=== PATIENT | female | born 1945 | race Caucasian/White ===

== ENCOUNTER 2020-03-20 14:43 | Emergency (ER) | payer OTHER, SELFPAY ==
[2020-03-20 15:13] VITALS: BP 163/73; PULSE 66; RESP 24; TEMP 37.3; O2SAT 96
--- NOTE | 2020-03-20 15:19 | ECG_ITS ---
Test Reason : SOB Blood Pressure : / mmHG Vent. Rate : 058 BPM Atrial Rate : 058 BPM P-R Int : 152 ms QRS Dur : 088 ms QT Int : 426 ms P-R-T Axes : 074 035 046 degrees QTc Int : 418 ms Sinus bradycardia Minimal voltage criteria for LVH, may be normal variant Abnormal ECG When compared with ECG of 28-NOV-2017 01:39, Vent. rate has decreased BY [address] no longer depressed in Anterolateral leads Referred By: Caridad Arias Electronically Signed By:JOSE STAPLETON MD
--- NOTE | 2020-03-20 15:37 | ED_ITS ---
HPI - URI/Sore Throat General Chief Complaint: Upper Respiratory Symptoms Stated Complaint: coughing,phlegm Time Seen by Provider: 03/20/20 14:58 Source: patient and family (Daughter) Mode of arrival: ambulatory Limitations: language barrier and other ( poor historian due to history of dementia and Trinidadian-speaking) History of Present Illness HPI Narrative: 74yoF c PMHx of asthma, diabetes, hypertension, hyperlipidemia and dementia presenting to the ED c c/o dry cough with shortness of breath /wheezing since yesterday. Denies any fevers, chills, nausea / vomiting, chest pain, abdominal pain, diarrhea or swelling of her legs. Reports she has been using her albuterol inhaler with no symptomatic relief. She reports she does not have nebulizer machine at home. Denies recent travel or sick contacts. Denies any additional complaints or concerns at this time. Related Data Previous Rx's Medication Instructions Recorded albuterol sulfate 1 inh INHALATION QID PRN #8.5 g 03/20/20 albuterol sulfate 2.5 mg INHALATION QID PRN #75 ml 03/20/20 azithromycin See Rx Instructions PO .COMPLEX #6 03/20/20 tab nebulizers [AeroEclipse II #1 ea 03/20/20 Nebulizer] prednisone 40 mg PO DAILY 5 Days #10 tab 03/20/20 Allergies Allergy/AdvReac Type Severity Reaction Status Date / Time No Known Allergies Allergy Unverified 01/17/20 17:55 Review of Systems Review of Systems: Constitutional : No Fever, No Chills, No fatigue, No Malaise ENT/Mouth : No sore throat, No runny nose Eyes: No Discharge Cardiovascular : No Chest Pain, + SOB Respiratory : + Cough, No Sputum, + Wheezing, No Smoke Exposure, No Dyspnea Gastrointestinal : No Nausea, No Vomiting, No Diarrhea Genitourinary : No irregular bleeding, No Dysuria, No Urinary Frequency, No Hematuria, No Urinary Incontinence, No Urgency, No Flank Pain, Musculoskeletal : No Myalgia Skin : No rash Neuro : No Headache Yes all other systems are reviewed and are negative [facility] Past Medical History Attestation statement: The following information was validated with the patient. Medical History (Updated 03/20/20 @ 17:40 by NORIS Flores) Asthma Asthma exacerbation Social History Social History Smoking Status: Never smoker Use of substances other than those prescribed or required for medical reasons: No Advance Directives: No Advance Directives Information Provided: Yes Physical Exam Vital Signs: Vital Signs: Last Vital Signs Temp 99.0 F 03/20/20 16:55 Pulse 62 03/20/20 16:55 Resp 20 03/20/20 16:55 BP 154/51 H 03/20/20 16:55 Pulse Ox 96 03/20/20 16:55 Body Mass Index 1.9 vital signs have been reviewed as normal and appeared to be correct. Blood pressure normal. Heart rate normal. Respiration rate normal. Temperature normal. Oxygen saturation normal. Appearance: Alert. Oriented. No mild respiratory distress. Head: Normal external exam. Normocephalic. Eyes: PERRLA. EOMI. Conjunctiva and sclera normal. Eyelids normal. ENT: Pharynx normal. Uvula midline. Moist mucous membranes. No trismus noted. No drooling noted. No muffled voice noted. Neck: Normal inspection. Neck supple. FROM. No adenopathy. No meningeal signs. CVS: Normal heart rate and rhythm. Heart sound normal. No murmurs noted. Pulses normal throughout. Respiratory: mild respiratory distress With accessory muscle usage, tracheal tugging and retractions noted. Decreased breath sounds with inspiratory and expiratory wheezing throughout. No rales/rhonchi noted. Chest nontender. Back: Full range of motion noted. Skin: Skin warm and dry. Normal skin color. Normal skin turgor. No rashes/lesions/lacerations noted. Extremities: No lower extremity edema. Extremities exhibit normal range of motion. Extremities nontender. Neuro: Oriented X 3. No motor deficit. No sensory deficit. Reflexes normal. Resp: Effort & Inspection: retractions Course Course Course Narrative: 15:20PM - 74yoF c PMHx of asthma, diabetes, hypertension, hyperlipidemia and dementia presenting to the ED c c/o dry cough with shortness of breath /wheezing since yesterday. - on exam patient is in mild respiratory distress speaking in short phrases with accessory muscle usage, tracheal tugging and retractions noted with extra [place] and inspiratory wheezing although oxygen saturation is 96% on room air I did a walking exercise test for a few steps and she also state consist at 96% on room air. patient has mild tachypnea otherwise all other vitals are WNL. - Plan: Labs, CXR, EKG. Provide a breathing tc, 125mg of solumederol, 2 g of magnesium then re-evaluate. Reevaluation(s) Reevaluation #1: - BUN mildly elevated at 26. Otherwise all other labs are within normal limits. EKG sinus bradycardia no acute ischemic changes noted. Chest x-ray revealed Subtle bronchial wall thickening may reflect small airways infection or inflammation. No focal consolidations. No pneumothorax or pleural effusion. - Patient reports moderate improvement after the 125 mg of Solu-Medrol, 2 g of magnesium and the 1 hour long breathing treatment. - Due to the patient's elevated BUN will give 1 L of IV fluids - Plan is to discharge with antibiotics and symptomatic treatment along with instructions return if any new or worsening symptoms to follow-up with primary care provider. COVID swab is pending at this time. Patient instructed to self isolate. Patient and daughter at bedside understands and agrees the plan. Time: 17:32 MDM - URI/Sore Throat Medical Records Attestation: I reviewed the patient's medical records. Lab Data Attestation: I reviewed the patient's lab results. Result diagrams: 03/20/20 16:04 03/20/20 16:04 Labs: Lab Results 03/20/20 03/20/20 03/20/20 Range/Units 05:44 16:04 16:04 WBC 8.3 (4.8-10.8) X10*3/uL RBC 4.17 L (4.20-5.50) X10*6/uL Hgb 11.8 L (12.0-16.0) g/dl Hct 36.6 L (37-47) % MCV 87.8 (80-98) fL MCH 28.3 (27.0-33.0) pg MCHC 32.2 (31.0-35.0) g/dl RDW 13.9 (11.0-16.0) % Plt Count 311 (160-400) X10*3/uL MPV 9.6 (9.4-12.3) fL Immature Gran % (Auto) 0.2 (0.0-0.4) % Neut % (Auto) 69.3 (45-73) % Lymph % (Auto) 19.4 L (20-40) % [place] % (Auto) 9.2 (2-11) % Eos % (Auto) 1.8 (0-4) % Baso % (Auto) 0.1 (0-2) % Lymph # (Auto) 1.6 (1.2-4.9) X10*3/uL [place] # (Auto) 0.8 (0.1-1.2) X10*3/uL Eos # (Auto) 0.2 (0.0-0.4) X10*3/uL Baso # (Auto) 0.0 (0.0-0.2) X10*3/uL Abs Immat Gran (auto) 0.02 (0.00-0.03) X10*3/uL Absolute Neuts (auto) 5.8 (2.0-8.3) X10*3/uL Absolute Nucleated RBC 0.000 (0.0-0.012) X10*3/uL Nucleated RBC % (auto) 0.0 (0.0-0.2) /100WBC Hold Purple Top SEE NOTE PT 11.5 (10.8-13.0) SEC INR 1.0 (0.9-1.1) Sodium (135-145) mmol/L Potassium (3.3-5.1) mmol/l Chloride (96-108) mmol/L Carbon Dioxide (22-29) mmol/L Anion Gap (12-20) BUN (9-16) mg/dL Creatinine (0.5-1.4) mg/dL Estim Creat Clear Calc Estimated GFR Random Glucose (60-115) mg/dL Calcium (8.4-10.2) mg/dL Magnesium (1.6-2.6) mg/dL Total Bilirubin (0.0-1.0) mg/dL Direct Bilirubin (0.0-0.5) mg/dL AST (5-31) U/L ALT (0-31) U/L Alkaline Phosphatase (39-117) U/L Total Protein (6.5-8.0) g/dL Albumin (3.5-5.0) g/dL 03/20/20 Range/Units 16:04 WBC (4.8-10.8) X10*3/uL RBC (4.20-5.50) X10*6/uL Hgb (12.0-16.0) g/dl Hct (37-47) % MCV (80-98) fL MCH (27.0-33.0) pg MCHC (31.0-35.0) g/dl RDW (11.0-16.0) % Plt Count (160-400) X10*3/uL MPV (9.4-12.3) fL Immature Gran % (Auto) (0.0-0.4) % Neut % (Auto) (45-73) % Lymph % (Auto) (20-40) % [place] % (Auto) (2-11) % Eos % (Auto) (0-4) % Baso % (Auto) (0-2) % Lymph # (Auto) (1.2-4.9) X10*3/uL [place] # (Auto) (0.1-1.2) X10*3/uL Eos # (Auto) (0.0-0.4) X10*3/uL Baso # (Auto) (0.0-0.2) X10*3/uL Abs Immat Gran (auto) (0.00-0.03) X10*3/uL Absolute Neuts (auto) (2.0-8.3) X10*3/uL Absolute Nucleated RBC (0.0-0.012) X10*3/uL Nucleated RBC % (auto) (0.0-0.2) /100WBC Hold Purple Top PT (10.8-13.0) SEC INR (0.9-1.1) Sodium 144 (135-145) mmol/L Potassium 4.7 (3.3-5.1) mmol/l Chloride 108 (96-108) mmol/L Carbon Dioxide 26 (22-29) mmol/L Anion Gap 15 (12-20) BUN 26 H (9-16) mg/dL Creatinine 1.38 (0.5-1.4) mg/dL Estim Creat Clear Calc 2.5 Estimated GFR 37 Random Glucose 94 (60-115) mg/dL Calcium 8.5 (8.4-10.2) mg/dL Magnesium 1.9 (1.6-2.6) mg/dL Total Bilirubin 0.4 (0.0-1.0) mg/dL Direct Bilirubin < 0.2 (0.0-0.5) mg/dL AST 17 (5-31) U/L ALT 10 (0-31) U/L Alkaline Phosphatase 127 H (39-117) U/L Total Protein 6.9 (6.5-8.0) g/dL Albumin 4.1 (3.5-5.0) g/dL Imaging Data Chest x-ray: Attestation: I personally reviewed and interpreted this imaging study as follows: Radiologist's impression: Subtle bronchial wall thickening may reflect s mall airways infection or inflammation. No focal consolidations. No pneumothorax or pleural effusion. ECG Data Attestation: I personally reviewed and interpreted this ECG as follows: ECG interpretation date: 03/20/20 ECG interpretation time: 15:49 Interpretation: Sinus bradycardia with a ventricular rate of 58 with LVH with a normal QRS duration normal QT /QTC interval. No acute ischemic changes noted. Similar compared to prior on 11/28/2017. Critical Care Time Critical Care Time Critical Care Time: Yes Total Critical Care Time: 60 Attestation: I personally attest to this time spent taking care of the patient Discharge Plan Discharge Clinical Impression: Acute viral syndrome Asthma exacerbation Qualifiers: Asthma severity: severe Asthma persistence: unspecified Qualified Code(s): J45.901 - Unspecified asthma with (acute) exacerbation Patient Disposition: Home, Self-Care Instructions: Asthma (ED), Bronchospasm (ED), COVID-19 (Coronavirus Disease 2019) (ED) Additional Instructions: Seguimiento con longoria proveedor de atenci?n primaria. Si usted no tiene 1 le di alan lista de diferentes lugares o puede llamar y encontrar un nuevo proveedor de atenci?n primaria para alan evaluaci?n y tratamiento adicional. Regrese si hay s?ntomas nuevos o que empeoran. Follow-up with her primary care provider. If you do not have 1 I gave you a list of different locations or you can call and find a new primary care provider for further evaluation and treatment. Return if any new or worsening symptoms. Seguimiento con longoria proveedor de atenci?n primaria. Si usted no tiene 1 le di alan lista de diferentes lugares o puede llamar y encontrar un nuevo proveedor de atenci?n primaria para alan evaluaci?n y tratamiento adicional. Regrese si hay s?ntomas nuevos o que empeoran. Bas?ndonos en dayday s?ntomas e historia, hemos enviado un COVID-19. Aunque longoria resultado es PENDIENTE en latisha momento. LOS RESULTADOS deben regresar en un plazo de 72 horas. En latisha momento se le contactar? con resultados NEGATIVOS O POSITIVOS. -Por favor, espere hasta que nos pongamos en contacto con usted para dayday resultados. En latisha momento usted estar? zack para el derek. Por favor, planifique la cuare ntena autom?carol por un m?ximo de 14 d?as. No te expongas a los dem?s. No puedes ir a trabajar. Si las pruebas vuelven negativas, puede volver a las actividades siempre y cuando ya no tenga s?ntomas rolando al menos 3 d?as. Por favor, siga las instrucciones en fr?o y l?vese las peterson con frecuencia. Puede sarwat Tylenol seg?n las instrucciones del biber?n para el dolor o la fiebre. Paciente atendido en el servicio de urgencias el 03/20/2020 y debe ser eximido del trabajo hasta los resultados negativos de la prueba Y hasta que hayan pasado 72 horas sin s?ntomas Y hayan pasado al menos 10 d?as desde que aparecieron los s?ntomas por primera vez o desde la ?ltima exposici?n al paciente positivo COVID-19 Directrices de los CDC para el aislamiento en el hogar: - Mant?ngase alejado de los dem?s - USAR ALAN MASCARA si usted est? enfermo Y ESTANCIA HOGAR - C?brase la boca y la nariz con un pa?uelo de papel al toser o estornudar. Deseche los pa?uelos en alan papelera forrada y l?vese las peterson inmediatamente con agua y jab?n rolando al menos 20 segundos. Si no hay agua y jab?n disponibles, limpie las peterson con desinfectante de peterson a base de alcohol que contenga al menos 60% de alcohol. - L?mpiarse las peterson a menudo con agua y jab?n rolando al menos 20 segundos - Evite tocarse los ojos, la nariz y la boca con las peterson sin britt - No comparta platos, vasos, tazas, utensilios para comer, toallas o ropa de cama con otras personas en longoria hogar. Despu?s de usar estos art?culos, l?velos zack con agua y jab?n o p?ngalos en el [place]. - Limpie las superficies de alto contacto en longoria ?lanny de aislamiento ( habitaci?n de enfermos y ba?o) todos los d?as; permitir que el cuidador limpie y desinfecte las superficies de alto contacto en otras ?reas del hogar. Limpie el ?lanny o el art?culo con agua y jab?n u otro detergente si est? sucio. Luego, usa un desinfectante dom?stico. - Limitar el contacto con mascotas y animales: Si debe cuidar de alan mascota, l?vese las peterson antes y despu?s de interactuar con ellos). Based on your symptoms and history we have sent a COVID-19. Although your RESULT IS PENDING at this time. RESULTS should return within 72 hours. At this time you will be contacted with either NEGATIVE OR POSITIVE results. -Please wait until we contact you for your results. At this time you will be okay for discharge. Please plan for self quarantine for up to 14 days. Do not expose yourself to others. You may not go to work. If testing does come back negative you may return to activities as long as you are no longer having any symptoms for at least 3 days. Please continue to follow cold instructions and wash your hands frequently. You may take Tylenol as directed on the bottle for pain or fever. Patient seen in the emergency department on 03/20/2020 and should be excused from work until negative test results AND until 72 hours without any symptoms AND at least 10 days have passed since symptoms first appeared or since last exposure to COVID-19 positive patient CDC Guidelines for home isolation: - Stay away from others - WEAR A MASK if you are sick AND STAY HOME - Cover your mouth and nose with a tissue when you cough or sneeze. Dispose of tissues in a lined trash can and wash your hands immediately with soap and water for at least 20 seconds. If soap and water are not available, clean hands with alcohol-based hand manager games that contains at least 60% alcohol. - Clean your hands often with soap and water for at least 20 seconds - Avoid touching your eyes, nose and mouth with unwashed hands - Do not share dishes, drinking glasses, cups, eating utensils, towels, or bedding with other people in your home. After using these items, wash them thoroughly with soap and water or put in the pecan sheller. - Clean high-touch surfaces in your isolation area ( sick room and bathroom) every day; let a caregiver clean and disinfect high-touch surfaces in other areas of the home. Clean the area or item with soap and water or another detergent if it is dirty. Then, use a household disinfectant. - Limit contact with pets and animals: If you must care for a pet, wash your hands before and after interacting with them). Prescriptions: New azithromycin 250 mg tablet See Rx Instructions PO .COMPLEX Qty: 6 RF: 0 albuterol sulfate 90 mcg/actuation HFA aerosol inhaler 1 inh inhalation QID PRN (Reason: shortness of breath or wheezing) Qty: 8.5 RF: 0 (DME) AeroEclipse II Nebulizer Misc See Rx Instructions .ROUTE .MEDSUPPLY Qty: 1 RF: 0 prednisone 20 mg tablet 40 mg PO DAILY 5 Days Qty: 10 RF: 0 albuterol sulfate 2.5 mg /3 mL (0.083 %) solution for nebulization 2.5 mg inhalation QID PRN (Reason: shortness of breath or wheezing) Qty: 75 RF: 0 Referrals: [facility] [Provider Group] - 2 days [facility] [Provider Group] - [address] [facility] [place] [Provider Group] - [address] [facility] [address] [facility] [Provider Group] - 2 days Print Language: Trinidadian
[2020-03-20] MEDS: Albuterol Sulfate (0.083%) 2.5 MG/3 ML VIAL.NEB 10 MG INHALE (16:05)
[2020-03-20] MEDS: Magnesium Sulfate/H2O 2 GM/50 ML PIGGYBACK IV (16:08)
[2020-03-20] MEDS: methylPREDNISolone Sod Succ/PF 125 MG/2 ML VIAL IVPUSH (16:24)
[2020-03-20 16:26] LABS: Basophils Percent Auto 0.1 % (0-2); Eosinophils Absolute Auto 0.2 X10*3/uL (0.0-0.4); Eosinophils Percent Auto 1.8 % (0-4); Hematocrit 36.6 % (37-47); Hemoglobin 11.8 g/dl (12.0-16.0); Imm Gran Abs Auto 0.02 X10*3/uL (0.00-0.03); Imm Gran Pct Auto 0.2 % (0.0-0.4); Lymphocytes Absolute Auto 1.6 X10*3/uL (1.2-4.9); Lymphocytes Percent Auto 19.4 % (20-40); MANUAL DIFF FLAG NO; Mean Corpuscular HGB Conc 32.2 g/dl (31.0-35.0); Mean Corpuscular Hemoglobin 28.3 pg (27.0-33.0); Mean Corpuscular Volume 87.8 fL (80-98); Mean Platelet Volume 9.6 fL (9.4-12.3); Monocytes Absolute Auto 0.8 X10*3/uL (0.1-1.2); Monocytes Percent Auto 9.2 % (2-11); Neutrophils Absolute Auto 5.8 X10*3/uL (2.0-8.3); Neutrophils Percent Auto 69.3 % (45-73); Platelet Count 311 X10*3/uL (160-400); Red Blood Count 4.17 X10*6/uL (4.20-5.50); Red Cell Distribution Width 13.9 % (11.0-16.0); White Blood Count 8.3 X10*3/uL (4.8-10.8)
[2020-03-20 16:32] LABS: Prothrombin Time 11.5 SEC (10.8-13.0)
--- NOTE | 2020-03-20 16:39 | XR_ITS ---
EXAMINATION: XR CHEST CLINICAL INFORMATION: Shortness of breath COMPARISON: Chest radiograph on 11/28/2017 TECHNIQUE: Frontal view of the chest was obtained. FINDINGS: The heart is normal in size. The cardiomediastinal and hilar contours are within normal limits and stable. The lungs are mildly hyperinflated as before. There is subtle, central bronchial wall thickening however there is no focal consolidation, pleural effusion or pneumothorax. XR/XR chest 1V IMPRESSION: Subtle bronchial wall thickening may reflect small airways infection or inflammation. No focal consolidations. No pneumothorax or pleural effusion.
[2020-03-20 16:54] LABS: Alanine Aminotransferase 10 U/L (0-31); Albumin Level 4.1 g/dL (3.5-5.0); Alkaline Phosphatase 127 U/L (39-117); Anion Gap 15 (12-20); Aspartate Amino Transferase 17 U/L (5-31); Bilirubin Direct < 0.2 mg/dL (0.0-0.5); Bilirubin Total 0.4 mg/dL (0.0-1.0); Blood Urea Nitrogen 26 mg/dL (9-16); Calcium 8.5 mg/dL (8.4-10.2); Carbon Dioxide 26 mmol/L (22-29); Chloride 108 mmol/L (96-108); Creatinine Clr Calc Pharmacy 2.5; Estimated Glomerular Filt Rate 37; Glucose Random 94 mg/dL (60-115); Magnesium 1.9 mg/dL (1.6-2.6); Potassium 4.7 mmol/l (3.3-5.1); Sodium 144 mmol/L (135-145); Total Protein 6.9 g/dL (6.5-8.0)
[2020-03-20 16:55] VITALS: BP 154/51; PULSE 62; RESP 20; TEMP 37.2; O2SAT 96
[2020-03-20] MEDS: 0.9 % Sodium Chloride 1,000 ML 999 ML IVCONT (17:43)
[2020-03-20 20:08] VITALS: BP 157/62; PULSE 66; RESP 20; TEMP 36.6; O2SAT 96
== END 2020-03-20 20:30 | disposition home or self-care (01) ==
PROVIDERS: Physician Assistant Medical; Emergency Provider Emergency Medicine
DX: J06.9 Acute upper respiratory infection, unspecified (principal); J45.901 Unspecified asthma with (acute) exacerbation; B34.9 Viral infection, unspecified; I10 Essential (primary) hypertension; E11.9 Type 2 diabetes mellitus without complications; Z20.828 Contact with and (suspected) exposure to other viral communicable diseases; Z79.899 Other long term (current) drug therapy
CPT/HCPCS: 36415; 71045; 80048; 80076; 83735; 85025; 85610; 93005; 94640; 94644; 96361; 96365; 96366; 96375; 96376; 99284; 99291; J2930; J3475; U0003

== ENCOUNTER 2020-07-03 09:51 | Outpatient (REF) | payer OTHER, SELFPAY | END 2020-07-03 09:52 | disposition home or self-care (01) | LOC: HO.LAB 09:51 | PROVIDERS: Visit Provider Internal Medicine | DX: Z20.822 Contact with and (suspected) exposure to COVID-19 (principal) | CPT/HCPCS: 36415; C9803; U0003; U0005 ==

== ENCOUNTER 2022-04-05 10:25 | Outpatient (REF) | payer OTHER, SELFPAY ==
[2022-04-05 10:56] LABS: Hematocrit 36.6 % (37.0-47.0); Hemoglobin 11.8 g/dl (12.0-16.0); Mean Corpuscular HGB Conc 32.2 g/dl (31.0-35.0); Mean Corpuscular Hemoglobin 27.5 pg (27.0-33.0); Mean Corpuscular Volume 85.3 fL (80.0-98.0); Mean Platelet Volume 9.8 fL (9.4-12.3); Platelet Count 309 X10*3/uL (160-400); Red Blood Count 4.29 X10*6/uL (4.20-5.50); Red Cell Distribution Width 14.2 % (11.0-16.0); White Blood Count 10.2 X10*3/uL (4.8-10.8)
[2022-04-05 11:26] LABS: Estimated Average Glucose 123 mg/dL; Hemoglobin A1c % 5.9 %
[2022-04-05 11:44] LABS: Alanine Aminotransferase 17 U/L (0-31); Albumin Level 4.1 g/dL (3.5-5.0); Alkaline Phosphatase 118 U/L (39-117); Anion Gap 13 (12-20); Aspartate Amino Transferase 14 U/L (5-31); Bilirubin Direct < 0.2 mg/dL (0.0-0.5); Bilirubin Total 0.4 mg/dL (0.0-1.0); Blood Urea Nitrogen 31 mg/dL (9-16); Calcium 9.3 mg/dL (8.4-10.2); Carbon Dioxide 28 mmol/L (22-29); Chloride 109 mmol/L (96-108); Cholesterol 157 mg/dL; Estimated Glomerular Filt Rate 26; Glucose Random 108 mg/dL (60-115); HDL Cholesterol 47 mg/dL; LDL Cholesterol Calculated 81 mg/dl; Potassium 4.5 mmol/L (3.3-5.1); Sodium 145 mmol/L (135-145); Thyroid Stimulating Hormone 0.33 uIU/mL (0.32-4.0); Total Protein 6.6 g/dL (6.5-8.0); Triglycerides 145 mg/dL
== END 2022-04-05 10:26 | disposition home or self-care (01) ==
LOC: HO.LAB 10:25
PROVIDERS: PCP Internal Medicine; Visit Provider Internal Medicine
DX: F03.90 Unspecified dementia, unspecified severity, without behavioral disturbance, psychotic disturbance, mood disturbance, and anxiety (principal); E78.5 Hyperlipidemia, unspecified; I10 Essential (primary) hypertension; E11.9 Type 2 diabetes mellitus without complications
CPT/HCPCS: 36415; 80048; 80061; 80076; 83036; 84443; 85027

== ENCOUNTER 2022-11-19 12:25 | Outpatient (REF) | payer OTHER, SELFPAY ==
[2022-11-19 14:03] LABS: Hematocrit 34.2 % (37.0-47.0); Mean Corpuscular HGB Conc 32.2 g/dl (31.0-35.0); Mean Corpuscular Hemoglobin 28.4 pg (27.0-33.0); Mean Corpuscular Volume 88.1 fL (80.0-98.0); Mean Platelet Volume 10.4 fL (9.4-12.3); Platelet Count 256 X10*3/uL (160-400); Red Blood Count 3.88 X10*6/uL (4.20-5.50); Red Cell Distribution Width 13.5 % (11.0-16.0); White Blood Count 6.5 X10*3/uL (4.8-10.8)
[2022-11-19 14:07] LABS: Appearance Urine Clear; Color Urine Yellow; Glucose Urine UA Negative (Negative); Leukocyte Esterase Urine Negative (Negative); Nitrite Urine Negative (Negative); Specific Gravity - Urine 1.025 (1.005-1.025); Urine Blood Negative (Negative); Urine Ketones Negative (Negative); Urine Protein Trace mg/dL (Neg-Trace)
[2022-11-19 14:21] LABS: Estimated Average Glucose 108 mg/dL; Hemoglobin A1c % 5.4 %
[2022-11-19 14:51] LABS: Alanine Aminotransferase 13 U/L (0-31); Albumin Level 3.9 g/dL (3.5-5.0); Alkaline Phosphatase 87 U/L (39-117); Anion Gap 11 (12-20); Aspartate Amino Transferase 16 U/L (5-31); Bilirubin Direct 0.2 mg/dL (0.0-0.5); Bilirubin Total 0.4 mg/dL (0.0-1.0); Blood Urea Nitrogen 25 mg/dL (9-16); Carbon Dioxide 26 mmol/L (22-29); Chloride 108 mmol/L (96-108); Cholesterol 168 mg/dL; Estimated Glomerular Filt Rate 33; Glucose Random 82 mg/dL (60-115); HDL Cholesterol 63 mg/dL; LDL Cholesterol Calculated 93 mg/dl; Potassium 4.1 mmol/L (3.3-5.1); Sodium 141 mmol/L (135-145); Total Protein 6.6 g/dL (6.5-8.0); Triglycerides 60 mg/dL
[2022-11-19 14:54] LABS: Thyroid Stimulating Hormone 1.38 uIU/mL (0.32-4.0)
[2022-11-19 15:12] LABS: Creatinine Urine 217.77 mg/dL
== END 2022-11-19 12:26 | disposition home or self-care (01) ==
LOC: HO.LAB 12:25
PROVIDERS: PCP Internal Medicine; Visit Provider Internal Medicine
DX: E11.9 Type 2 diabetes mellitus without complications (principal); F03.90 Unspecified dementia, unspecified severity, without behavioral disturbance, psychotic disturbance, mood disturbance, and anxiety
CPT/HCPCS: 36415; 80048; 80061; 80076; 81003; 82043; 83036; 84443; 85027

== ENCOUNTER 2023-03-10 14:23 | Outpatient (AMB) | payer OTHER, SELFPAY ==
--- NOTE | 2023-03-10 14:24 | A.OFFPC_ITS ---
Vital Signs 03/10/23 14:27 Height 5 ft 1 in Weight 115 lb BMI 21.7 BP 140/70 H Blood Pressure Location Lt brachial Position Sitting Pulse 55 Pulse Source Pulse Oximeter Pulse Oximetry (%) 97 Oxygen Delivery Method Room Air Intake Visit Reasons: Discuss neuro referral Intake Note: Patient is here today for Neurology referral for dementia, constipation and loss of appetite. Medications refill Cash Applications Analyst Required: Yes Cash Applications Analyst Language: Extractions Technician Name: Erica (Granddaughter) Information Interpreted: non-clinical & clinical Battery Vent Plug Inserter: Not Required per policy Allergies No Known Allergies [No Known Allergies*] Allergy (Verified 03/11/23 14:19) Tobacco use date assessed: 03/10/23 Fall risk assessment: No Falls in past year Last assessed Fall Risk: 03/10/23 Dental Screening Dental Screen Date: 03/10/23 Did you have a dental visit in the last 12 months?: No Did you have a dental problem in the last 6 months where you did not have access to dental care?: No Was dental information given to patient?: No (dentures) HPI Discuss neuro referral HPI Details 77-year-old female presents to the offic e to discuss her chronic medical conditions. She is accompanied by her granddaughter and her daughter is joining via Rowl. The daughter and granddaughter are speaking on behalf of the patient. They report that the patient is constipated with some loss of appetite. Patient is having short-term memory loss. She needs assistance with bathing. Unable to cook. Does not leave the house unsupervised. Urinary incontinence present. Able to eat by herself. Her sleep patterns are normal. [facility] Medical History Cough Hypothyroidism High cholesterol Dementia HTN (hypertension) Diabetes Asthma exacerbation Asthma Surgical History H/O: hysterectomy Family History Mother No problems noted. Father No problems noted. Other Mental health disorder Social History Housing: Apartment Alcohol intake: never Patient Tobacco Use Status: Never used Tobacco e-Cigarette/Vaping Use: Never Used Second Hand Smoke Exposure: No service: No Current occupational status: retired and disabled Cognitive needs: Yes (cane) Hearing needs: No Vision needs: Yes (glasses) Questionnaire Thrive Questionnaire Date Thrive assessed: 11/04/22 Currently or been in a relationship where the following occur: no concerns reported ISACC-7 AMB Questionnaire ISACC-7 Date ISACC - 7 assessed: 11/04/22 Feeling nervous, anxious, or on edge: 1 = Several days Not being able to stop or control worryin = Several days Worrying too much about different things: 1 = Several days Trouble relaxin = Several days Being so restless that it is hard to sit still: 1 = Several days Becoming easily annoyed or irritable: 1 = Several days Feeling afraid as if something awful might happen: 1 = Several days Total ISACC-7 score (0-4 normal; 5-9 mild; 10-14 moderate; 15-21 severe): 7 Source: Developed by Drs. Perico Lopes, Carlotta Driscoll, Tan Alvarez and colleagues, with an educational bere from [employer]. Physical exam (Primary Care) Vital Signs: Last Vital Signs Pulse 55 03/10/23 14:27 BP 140/70 H 03/10/23 14:27 Pulse Ox 97 03/10/23 14:27 Oxygen Delivery Method Room Air 03/10/23 14:27 Care Plan Goal for BP management: Blood pressure is in range. Continue current medications. BMI result Body Mass Index 21.7 Tobacco/Smoking Status: Tobacco use Status Tobacco use date assessed 03/10/23 03/10/23 14:39 Patient Tobacco Use Status Never used Tobacco 03/10/23 14:39 e-Cigarette/Vaping Use Never Used 03/10/23 14:39 Thrive Assessment: Date of Thrive Assessment Date Thrive assessed 11/04/22 03/10/23 14:39 Currently or been in a relationship where the following occur: no concerns reported Advance Care Planning discussion: Exists, not on file Date of discussion: 03/10/23 Who was present: Granddaughter and daughter via the phone. Forms completed: Health Care Proxy and MOLST Time spent: 1-15 minutes, not on file Actual minutes spent: 5 Const Other: Patient is oriented to time and place. Could not recall the month or the year. General: cooperative and healthy appearing Nutritional Appearance: well nourished [facility] Head: Yes normal to inspection Eyes General: appearance normal, both eyes and all related structures Neck Neck: Yes normal visual inspection Chest Chest palpation & inspection: normal palpation of entire chest wall Resp Effort & Inspection: normal respiratory effort Results AMB Hemoglobin A1c AMB Hemoglobin A1c 5.7 % Last Edit by CHERYL Yoon on 03/10/23 14:56 Results Reviewed Results Reviewed: Laboratory Last Values Hgb A1c (Clinic) 5.7 % (4.0-6.0) 03/10/23 14:39 Assessment and Plan Assessment & Plan (1) Dementia: Code(s): F03.90 - Unspecified dementia, unspecified severity, without behavioral disturbance, psychotic disturbance, mood disturbance, and anxiety Plan: Patient would benefit from a neuro evaluation. Referral has been made. On physical exam her bowel sounds were normal and no tenderness. Patient was advised to eat high-fiber diet to prevent constipation. Medications reviewed. Orders: Orders AMB Hemoglobin A1c 03/10/23 E11.9 - Type 2 diabetes mellitus without complications Complete Blood Count no Diff 03/10/23 F0. - Unspecified dementia, unspecified severity, without behavioral disturbance, psychotic disturbance, mood disturbance, and anxiety Erythrocyte Sedimentation Rate 03/10/23. - Unspecified dementia, unspecified severity, without behavioral disturbance, psychotic disturbance, mood disturbance, and anxiety Lipid Panel 03/10/23 - Unspecified dementia, unspecified severity, without behavioral disturbance, psychotic disturbance, mood disturbance, and anxiety Thyroid Stimulating Hormone 03/10/23. - Unspecified dementia, unspecified severity, without behavioral disturbance, psychotic disturbance, mood disturbance, and anxiety UA and rflx microscopic 03/10/23. - Unspecified dementia, unspecified severity, without behavioral disturbance, psychotic disturbance, mood disturbance, and anxiety Syphilis Screen 03/10/23. - Unspecified dementia, unspecified severity, without behavioral disturbance, psychotic disturbance, mood disturbance, and anxiety Basic Metabolic Panel 03/10/23 - Unspecified dementia, unspecified severity, without behavioral disturbance, psychotic disturbance, mood disturbance, and anxiety Liver Panel 03/10/23 - Unspecified dementia, unspecified severity, without behavioral disturbance, psychotic disturbance, mood disturbance, and anxiety Medications: Refilled levothyroxine 88 mcg PO DAILY 90 tabs 1RF Coding Level of Care Code Est Pt Level 4 (99890) Diagnoses Dementia F03.90 Additional Codes Vital Signs *Quality* - Advance Care Planning discussion: Exists, not on file ([id number]) Vital Signs *Quality* - Time spent: 1-15 minutes, not on file ([id number])
[2023-03-10 14:27] VITALS: BP 140/70; PULSE 55; O2SAT 97; BMI 21.7
== END 2023-03-10 15:22 | disposition home or self-care (01) ==
LOC: HO.HMGH 14:23
PROVIDERS: PCP Internal Medicine; Visit Provider Internal Medicine
DX: E11.9 Type 2 diabetes mellitus without complications (principal)
CPT/HCPCS: 1123F; 1124F; 83036; 99214

== ENCOUNTER 2023-03-10 15:03 | Outpatient (REF) | payer OTHER, SELFPAY ==
[2023-03-10 15:48] LABS: Hematocrit 33.8 % (37.0-47.0); Hemoglobin 10.9 g/dl (12.0-16.0); Mean Corpuscular HGB Conc 32.2 g/dl (31.0-35.0); Mean Corpuscular Hemoglobin 28.3 pg (27.0-33.0); Mean Corpuscular Volume 87.8 fL (80.0-98.0); Mean Platelet Volume 10.5 fL (9.4-12.3); Platelet Count 285 X10*3/uL (160-400); Red Blood Count 3.85 X10*6/uL (4.20-5.50); Red Cell Distribution Width 14.5 % (11.0-16.0); White Blood Count 5.5 X10*3/uL (4.8-10.8)
[2023-03-10 16:12] LABS: Appearance Urine Clear; Color Urine Yellow; Glucose Urine UA Negative (Negative); Leukocyte Esterase Urine Small (1+) (Negative); Nitrite Urine Negative (Negative); PH 5.5 (5.0-9.0); UMIC TRIGGER UA YES; Urine Blood Negative (Negative); Urine Ketones Trace mg/dL (Negative); Urine Protein 30 (1+) mg/dL (Neg-Trace)
[2023-03-10 16:32] LABS: Bacteria Urine None Seen (None Seen); Hyaline Casts Urine 0-2 /LPF (0-2); RBC Urine 0-2 /HPF (0-2); WBC Urine 0-5 /HPF (0-5)
[2023-03-10 16:43] LABS: Erythrocyte Sedimentation Rate 5 MM/HR (0-20)
[2023-03-10 19:17] LABS: Alanine Aminotransferase 14 U/L (0-31); Alkaline Phosphatase 102 U/L (39-117); Anion Gap 11 (12-20); Aspartate Amino Transferase 18 U/L (5-31); Bilirubin Direct 0.1 mg/dL (0.0-0.5); Bilirubin Total 0.4 mg/dL (0.0-1.0); Blood Urea Nitrogen 26 mg/dL (9-16); Carbon Dioxide 29 mmol/L (22-29); Chloride 108 mmol/L (96-108); Cholesterol 195 mg/dL (<200); Estimated Glomerular Filt Rate 35; Glucose Random 112 mg/dL (60-115); HDL Cholesterol 62 mg/dL (>40); LDL Cholesterol Calculated 116 mg/dL (<100); Potassium 4.2 mmol/L (3.3-5.1); Sodium 144 mmol/L (135-145); Total Protein 6.3 g/dL (6.5-8.0); Triglycerides 87 mg/dL (<150)
[2023-03-10 19:32] LABS: Thyroid Stimulating Hormone 2.74 uIU/mL (0.32-4.0)
[2023-03-11 08:05] LABS: Syphilis Screen Nonreactive (Nonreactive)
== END 2023-03-10 15:04 | disposition home or self-care (01) ==
LOC: HO.LAB 15:03
PROVIDERS: PCP Internal Medicine; Visit Provider Internal Medicine
DX: F03.90 Unspecified dementia, unspecified severity, without behavioral disturbance, psychotic disturbance, mood disturbance, and anxiety (principal)
CPT/HCPCS: 36415; 80048; 80061; 80076; 81001; 84443; 85027; 85652; 86780

== ENCOUNTER 2023-10-11 13:11 | Outpatient (AMB) | payer OTHER, SELFPAY ==
--- NOTE | 2023-10-11 13:15 | A.OFFVIS_ITS ---
Vital Signs 10/11/23 13:17 Height 5 ft 1 in Weight 115 lb 4 oz BMI 21.8 BP 180/82 H Blood Pressure Location Rt brachial Position Sitting Respiration 16 Pulse 59 Pulse Source Pulse Oximeter Pulse Oximetry (%) 96 Oxygen Delivery Method Room Air Intake Visit Reasons: I-JOB DEVELOPMENT SPECIALIST: Evaluation for Dementia - Conf Intake Note: Pt presents for new pt evaluation for dementia. Putty Glazer Required: Yes Putty Glazer Name: Brie Ibarra CMA Allergies No Known Allergies [No Known Allergies*] Allergy (Verified 10/11/23 13:17) Medication List - Last Reconciled 10/11/23 by Radha Le MD albuterol sulfate 90 mcg/actuation 2 puffs inhalation Q6H PRN albuterol sulfate 2.5 mg (3 mL) inhalation QID PRN amlodipine 5 mg PO DAILY atorvastatin 40 mg PO DAILY 3 months donepezil 10 mg PO DAILY famotidine 20 mg PO DAILY fluticasone propionate 50 mcg/actuation (Allergy Relief (fluticasone)) 1 spray intranasal DAILY gabapentin 600 mg PO BID levothyroxine 88 mcg PO DAILY loratadine 10 mg PO DAILY losartan-hydrochlorothiazide 100-12.5 mg 1 tab PO DAILY metformin 500 mg PO DAILY nebulizers (AeroEclipse II Nebulizer) As directed sertraline 100 mg PO DAILY walker (Ultra-Light Rollator misc) As directed HPI Comments Details: 78y/o female comes for evaluation of cognitive issues. Her daughter helps with history. A certified medical registrar was used during todays appointment As per daughter her memory issues started 5 years ago.The memory has worsened since then she often forgets conversations and repeats herself. her memory issues are mostly short term. she misplaces things around the house. she forgot her recent vacation.she has trouble with phone numbers,but can remember her grand children . she has more anxiety , depression she has rare falls or head injury . she reports numbness and tingling in her hands . she has snoring,trouble falling asleep and staying asleep.she has daytime sleepiness. [facility] Medical History (Updated 10/11/23 @ 14:15 by Radha Le MD) Dementia Cough Hypothyroidism High cholesterol Dementia HTN (hypertension) Diabetes Asthma exacerbation Asthma Surgical History H/O: hysterectomy Family History Mother No problems noted. Father No problems noted. Other Mental health disorder Social History Housing: Apartment Alcohol intake: never Patient Tobacco Use Status: Never used Tobacco e-Cigarette/Vaping Use: Never Used Second Hand Smoke Exposure: No service: No Current occupational status: retired and disabled Cognitive needs: Yes (cane) Hearing needs: No Vision needs: Yes (glasses) Physical Exam Vital Signs: Last Vital Signs Pulse 59 10/11/23 13:17 Resp 16 10/11/23 13:17 BP 180/82 H 10/11/23 13:17 Pulse Ox 96 10/11/23 13:17 Oxygen Delivery Method Room Air 10/11/23 13:17 BMI result Body Mass Index 21.8 Const General: cooperative, healthy appearing and comfortable Nutritional Appearance: average body habitus Orientation/consciousness: oriented to place HEENT Head: Yes normal to inspection and Yes normocephalic Eyes Pupils: Equal, round and reactive pupils present Neuro General: oriented to place, tone normal, moves all extremities and no focal motor deficits Cranial nerves: Yes CN's II-XII intact bilaterally, Yes Equal, round and reactive pupils present, Yes Bilaterally intact EOM present, Yes Nystagmus not present, Yes Normal facial strength present, Yes Midline tongue present, Yes Ability to bilaterally rotate head present and Yes Ability to bilaterally elevate shoulders present Cognition (Neuro): abnormal cognition Gait exam (Neuro): Antalgic gait present Motor exam (neuro): 5/5 motor strength present throughout and Normal motor muscle tone present throughout Deep tendon reflexes (DTR's): Right triceps reflex intensity grade: 1+, Left triceps reflex intensity grade: 1+, Rt Biceps (C5, C6): 1+, Left biceps reflex intensity grade: 1+, Right brachioradialis reflex intensity grade: 1+, Left brachioradialis reflex intensity grade: 1+, Right patellar reflex intensity grade: 1+ and Left patellar reflex intensity grade: 1+ Coordination: [id number] test normal Orientation Where are we (state) (county) (town or city) (hospital) (floor)?: town or city and hospital/clinic Registration Name of 3 unrelated objects clearly and slowly, then ask patient to repeat all 3 of them. (1st repeat determines score. Make sure they can repeat all three): object 1, object 2 and object 3 Language Show patient a wristwatch & ask what it is. Repeat for pencil.: watch and pencil Ask the patient to repeat the phrase 'No ifs, ands, or buts' after you.: correct Ask the patient to 'take a piece of paper with their right hand' 'fold paper in half' 'place paper on floor': take paper in right hand and fold paper in half Print the sentence 'CLOSE YOUR EYES' on a piece. If patient actually closes eyes then score.: followed written direction Score Score: 11 Assessment & Plan Assessment & Plan (1) Dementia: Comment: ALzheimers vs Mixed Code(s): F03.90 - Unspecified dementia, unspecified severity, without behavioral disturbance, psychotic disturbance, mood disturbance, and anxiety Category: Medical Plan MRI Brain Labs- Vit B 12 RPR Continue donepezil 10mg qd I will trial her on namenda XR 7 mg qd Orders: Orders Vitamin D 25-OH (D2 and D3) Today F03.90 - Unspecified dementia, unspecified severity, without behavioral disturbance, psychotic disturbance, mood disturbance, and anxiety MR head/brain wo con Today F03.90 - Unspecified dementia, unspecified severity, without behavioral disturbance, psychotic disturbance, mood disturbance, and anxiety Vitamin B12 and Folate Today F03.90 - Unspecified dementia, unspecified severity, without behavioral disturbance, psychotic disturbance, mood disturbance, and anxiety RPR Monitor reflex titer Today F03.90 - Unspecified dementia, unspecified severity, without behavioral disturbance, psychotic disturbance, mood disturbance, and anxiety Medications: New memantine 7 mg PO DAILY 30 ea 0RF Coding Level of Care Code New Pt Level 4 (87429) Diagnoses Dementia F03.90
[2023-10-11 13:17] VITALS: BP 180/82; PULSE 59; RESP 16; O2SAT 96; BMI 21.8
== END 2023-10-11 14:24 | disposition home or self-care (01) ==
PROVIDERS: PCP Internal Medicine; Visit Provider Psychiatry & Neurology Neurology
DX: F03.90 Unspecified dementia, unspecified severity, without behavioral disturbance, psychotic disturbance, mood disturbance, and anxiety (principal)
CPT/HCPCS: 99204

== ENCOUNTER → 2023-10-11 13:11 | Outpatient (BNVA) | payer OTHER, SELFPAY | PROVIDERS: PCP Internal Medicine; Visit Provider Psychiatry & Neurology Neurology | DX: F03.90 Unspecified dementia, unspecified severity, without behavioral disturbance, psychotic disturbance, mood disturbance, and anxiety (principal) | CPT/HCPCS: 99202 ==

== ENCOUNTER 2023-10-11 14:26 | Outpatient (REF) | payer OTHER, SELFPAY ==
[2023-10-11 19:22] LABS: Folate 12.2 ng/mL (> or = 4.0); Vitamin B12 256 pg/mL (200-900)
[2023-10-14 17:28] LABS: RPR Rapid Plasma Reagin NON-REACTIVE (NON-REACTIVE)
[2023-10-18 14:23] LABS: Vitamin D 25-OH, D2 <4 ng/mL; Vitamin D 25-OH, D3 40 ng/mL; Vitamin D 25-OH, Total 40 ng/mL (30-100)
== END 2023-10-11 14:27 | disposition home or self-care (01) ==
LOC: HO.HKASLDS 14:26
PROVIDERS: Visit Provider Psychiatry & Neurology Neurology
DX: F03.90 Unspecified dementia, unspecified severity, without behavioral disturbance, psychotic disturbance, mood disturbance, and anxiety (principal)
CPT/HCPCS: 36415; 82306; 82607; 82746; 86592

== ENCOUNTER 2023-11-08 15:21 | Outpatient (AMB) | payer OTHER, SELFPAY ==
--- NOTE | 2023-11-08 15:26 | A.OFFPC_ITS ---
Vital Signs 11/08/23 15:28 Height 5 ft 1 in Weight 114 lb 4 oz BMI 21.6 BP 140/70 H Blood Pressure Location Lt brachial Position Sitting Pulse 54 Pulse Source Pulse Oximeter Pulse Oximetry (%) 97 Oxygen Delivery Method Room Air Intake Visit Reasons: annual exam Intake Note: Patient is here today for a physical. Medical Aides Teacher Required: Yes Medical Aides Teacher Language: Bareback Rider Name: Theresa (GrandDaughter) Information Interpreted: non-clinical & clinical Human Insights Lead Ads Marketing: Present Accompanied by: Daughter Allergies No Known Allergies [No Known Allergies*] Allergy (Verified 11/08/23 15:59) Medication List - Last Reconciled 11/08/23 by Terry Wynn MD albuterol sulfate 90 mcg/actuation 2 puffs inhalation Q6H PRN albuterol sulfate 2.5 mg (3 mL) inhalation QID PRN amlodipine 5 mg PO DAILY atorvastatin 40 mg PO DAILY 3 months donepezil 10 mg PO DAILY famotidine 20 mg PO DAILY fluticasone propionate 50 mcg/actuation (Allergy Relief (fluticasone)) 1 spray intranasal DAILY gabapentin 600 mg PO BID levothyroxine 88 mcg PO DAILY loratadine 10 mg PO DAILY losartan-hydrochlorothiazide 100-12.5 mg 1 tab PO DAILY memantine 7 mg PO DAILY 90 days metformin 500 mg PO DAILY nebulizers (AeroEclipse II Nebulizer) As directed sertraline 100 mg PO DAILY walker (Ultra-Light Rollator misc) As directed Tobacco use date assessed: 11/08/23 Fall risk assessment: 1 Fall in past year Last assessed Fall Risk: 11/08/23 Dental Screening Dental Screen Date: 11/08/23 Did you have a dental visit in the last 12 months?: No Did you have a dental problem in the last 6 months where you did not have access to dental care?: No Was dental information given to patient?: No (Dentures) HPI annual exam HPI Details 78-year-old female presents to the [facility] for a physical exam. She is accompanied by her daughter, her granddaughter is translating on the phone. In addition to the physical exam, they wish to discuss her chronic medical conditions. Since the visit to the neurologist, patient has been on medications for dementia. According to the family, her condition is stable. Patient is able to eat by herself, bathe by herself and use the bathroom by herself. She is recognizing her immediate family members. However cannot maintain a conversation on the phone. [facility] Medical History Dementia Cough Hypothyroidism High cholesterol Dementia HTN (hypertension) Diabetes Asthma exacerbation Asthma Surgical History H/O: hysterectomy Family History Mother No problems noted. Father No problems noted. Other Mental health disorder Social History Housing: Apartment Alcohol intake: never Patient Tobacco Use Status: Never used Tobacco e-Cigarette/Vaping Use: Never Used Second Hand Smoke Exposure: No service: No Current occupational status: retired and disabled Cognitive needs: Yes (cane) Hearing needs: No Vision needs: Yes (glasses) Questionnaire PHQ-9 Over the last 2 weeks, how often have you been bothered by any of the following problems? 1. Little interest or pleasure in doing things: not at all 2. Feeling down, depressed, or hopeless: not at all 3. Trouble falling or staying asleep, or sleeping too much: not at all 4. Feeling tired or having little energy: not at all 5. Poor appetite or overeating: not at all 6. Feeling bad about yourself - or that you are a failure or have let yourself or your family down: not at all 7. Trouble concentrating on things, such as reading the newspaper or watching television: not at all 8. Moving or speaking so slowly that other people could have noticed. Or the opp osite - being so fidgety or restless that you have been moving around a lot more than usual: not at all 9. Thoughts that you would be better off or of hurting yourself in some way: not at all Total score: 0 Depression Screening Interpretation: Negative Depression Screening Done: Yes Source: Developed by Drs. Perico Lopes, Carlotta Driscoll, Tan Alvarez and colleagues, with an educational bere from [employer]. Thrive Questionnaire Date Thrive assessed: 11/08/23 I am a: Patient What is your living situation today?: I have a steady place to live Within the past 12 months, did the food you bought not last and you didn't have the money to get more?: Never true Within the past 12 months, did you worry whether your food would run out before you got money to buy more?: Never true Do you have trouble paying for medicines?: No Do you have trouble getting transportation to medical appointments?: No Do you have trouble paying your heating and electricity bill?: No Do you have trouble taking care of your child, family member or friend?: No Do you have trouble with day-to-day activities such as bathing, preparing meals, shopping, managing finances, etc.?: No Are you currently unemployed and looking for a job?: No Are you interested in more education?: No Currently or been in a relationship where the following occur: No concerns reported THRIVE Score: 0 AUDIT C Alcohol Use Questionnaire (AUDIT-C) 1. How often do you have a drink containing alcohol?: Never Total Score: 0 ISACC-7 AMB Questionnaire ISACC-7 Date ISACC - 7 assessed: 11/08/23 Feeling nervous, anxious, or on edge: 0 = Not at all Not being able to stop or control worryin = Not at all Worrying too much about different things: 0 = Not at all Trouble relaxin = Not at all Being so restless that it is hard to sit still: 0 = Not at all Becoming easily annoyed or irritable: 0 = Not at all Feeling afraid as if something awful might happen: 0 = Not at all Total ISACC-7 score (0-4 normal; 5-9 mild; 10-14 moderate; 15-21 severe): 0 Source: Developed by Drs. Perico Lopes, Carlotta Driscoll, Tan Alvarez and colleagues, with an educational bere from [employer]. Physical exam (Primary Care) Vital Signs: Last Vital Signs Pulse 54 11/08/23 15:28 BP 140/70 H 11/08/23 15:28 Pulse Ox 97 11/08/23 15:28 Oxygen Delivery Method Room Air 11/08/23 15:28 Care Plan Goal for BP management: Blood pressure is in range. BMI result Body Mass Index 21.6 Tobacco/Smoking Status: Tobacco use Status Tobacco use date assessed 11/08/23 11/08/23 15:39 Patient Tobacco Use Status Never used Tobacco 11/08/23 15:39 e-Cigarette/Vaping Use Never Used 11/08/23 15:39 PHQ-9: PHQ-9 Score PHQ-9: Total score 0 11/08/23 15:39 Depression Screening Interpretation: Negative Thrive Assessment: Date of Thrive Assessment Date Thrive assessed 11/08/23 11/08/23 15:39 Currently or been in a relationship where the following occur: No concerns reported Advance Care Planning discussion: Exists, not on file Date of discussion: 11/08/23 Who was present: Daughter Forms completed: Health Care Proxy Actual minutes spent: 5 Const Other: Patient is not oriented to time place and person. Unable to recall the month or the season. General: cooperative Nutritional Appearance: well nourished Limitations: no limitations HENMT Head: Yes normal to inspection Eyes General: appearance normal, both eyes and all related structures Neck Neck: Yes normal visual inspection Chest Chest palpation & inspection: normal palpation of entire chest wall Resp Effort & Inspection: normal respiratory effort Results AMB Hemoglobin A1c AMB Hemoglobin A1c 5.5 % Last Edit by CHERYL Yoon on 11/08/23 15:41 Results Reviewed Results Reviewed: Laboratory Last Values Hgb A1c (Clinic) 5.5 % (4.0-6.0) 11/08/23 15:26 Assessment and Plan Assessment & Plan (1) Diabetes: Code(s): E11.9 - Type 2 diabetes mellitus without complications Plan: A1c is in range. Continue medications at same dosage. (2) Dementia: Code(s): F03.90 - Unspecified dementia, unspecified severity, without behavioral dist urbance, psychotic disturbance, mood disturbance, and anxiety Plan: Continue medications at same dosage. Patient is still able to be mobile but needs supervision. (3) Annual physical exam: Code(s): Z00.00 - Encounter for general adult medical examination without abnormal findings Plan: Blood work has been ordered. Will call with results. Orders: Orders Thyroid Stimulating Hormone Today E11.9 - Type 2 diabetes mellitus without complications, F03.90 - Unspecified dementia, unspecified severity, without behavioral disturbance, psychotic disturbance, mood disturbance, and anxiety Lipid Panel Today E11.9 - Type 2 diabetes mellitus without complications, F03.90 - Unspecified dementia, unspecified severity, without behavioral disturbance, psychotic disturbance, mood disturbance, and anxiety UA and rflx microscopic Today E11.9 - Type 2 diabetes mellitus without comp lications, F03.90 - Unspecified dementia, unspecified severity, without behavioral disturbance, psychotic disturbance, mood disturbance, and anxiety AMB Hemoglobin A1c Today E11.9 - Type 2 diabetes mellitus without complications Complete Blood Count no Diff Today E11.9 - Type 2 diabetes mellitus without complications, F03.90 - Unspecified dementia, unspecified severity, without behavioral disturbance, psychotic disturbance, mood disturbance, and anxiety Basic Metabolic Panel Today E11.9 - Type 2 diabetes mellitus without complications, F03.90 - Unspecified dementia, unspecified severity, without behavioral disturbance, psychotic disturbance, mood disturbance, and anxiety Erythrocyte Sedimentation Rate Today E11.9 - Type 2 diabetes mellitus without complications, F03.90 - Unspecified dementia, unspecified severity, without behavioral disturbance, psychotic disturbance, mood disturbance, and anxiety Liver Panel Today E11.9 - Type 2 diabetes mellitus without complications, F03.90 - Unspecified dementia, unspecified severity, without behavioral disturba nce, psychotic disturbance, mood disturbance, and anxiety Medications: New gabapentin 600 mg PO BID 60 tabs 0RF Coding Level of Care Code Est Pt Level 4 (54761) Est Pt Prev Care >65y(45524) Diagnoses Diabetes E11.9 Dementia F03.90 Annual physical exam Z00.00 Additional Codes Vital Signs *Quality* - Advance Care Planning discussion: Exists, not on file ([id number])
[2023-11-08 15:28] VITALS: BP 140/70; PULSE 54; O2SAT 97; BMI 21.6
== END 2023-11-08 16:40 | disposition home or self-care (01) ==
PROVIDERS: PCP Internal Medicine; Visit Provider Internal Medicine
DX: Z00.00 Encounter for general adult medical examination without abnormal findings (principal); E11.9 Type 2 diabetes mellitus without complications; F03.90 Unspecified dementia, unspecified severity, without behavioral disturbance, psychotic disturbance, mood disturbance, and anxiety
CPT/HCPCS: 1123F; 83036; 99214; 99397

== ENCOUNTER 2023-11-11 12:06 | Outpatient (REF) | payer OTHER, SELFPAY ==
[2023-11-11 12:43] LABS: Hematocrit 35.6 % (37.0-47.0); Hemoglobin 11.5 g/dl (12.0-16.0); Mean Corpuscular HGB Conc 32.3 g/dl (31.0-35.0); Mean Corpuscular Hemoglobin 28.6 pg (27.0-33.0); Mean Corpuscular Volume 88.6 fL (80.0-98.0); Mean Platelet Volume 10.3 fL (9.4-12.3); Platelet Count 248 X10*3/uL (160-400); Red Blood Count 4.02 X10*6/uL (4.20-5.50); Red Cell Distribution Width 13.8 % (11.0-16.0)
[2023-11-11 13:18] LABS: Alanine Aminotransferase 14 U/L (0-31); Albumin Level 3.9 g/dL (3.5-5.0); Alkaline Phosphatase 95 U/L (39-117); Anion Gap 13 (12-20); Aspartate Amino Transferase 17 U/L (5-31); Bilirubin Direct 0.1 mg/dL (0.0-0.5); Bilirubin Total 0.3 mg/dL (0.0-1.0); Blood Urea Nitrogen 24 mg/dL (9-16); Calcium 9.5 mg/dL (8.4-10.2); Carbon Dioxide 28 mmol/L (22-29); Chloride 110 mmol/L (96-108); Cholesterol 168 mg/dL (<200); Estimated Glomerular Filt Rate 34; Glucose Random 149 mg/dL (60-115); HDL Cholesterol 59 mg/dL (>40); LDL Cholesterol Calculated 97 mg/dL (<100); Sodium 146 mmol/L (135-145); Total Protein 6.7 g/dL (6.5-8.0); Triglycerides 63 mg/dL (<150)
[2023-11-11 13:21] LABS: Erythrocyte Sedimentation Rate 7 MM/HR (0-20)
[2023-11-11 13:33] LABS: Thyroid Stimulating Hormone 2.29 uIU/mL (0.32-4.0)
[2023-11-11 15:45] LABS: Appearance Urine Clear; Color Urine Yellow; Glucose Urine UA Negative (Negative); Leukocyte Esterase Urine Small (1+) (Negative); Nitrite Urine Negative (Negative); PH 5.5 (5.0-9.0); UMIC TRIGGER UA YES; Urine Blood Negative (Negative); Urine Ketones Trace mg/dL (Negative); Urine Protein 100 (2+) mg/dL (Neg-Trace)
[2023-11-11 15:48] LABS: Bacteria Urine None Seen (None Seen); Hyaline Casts Urine 0-2 /LPF (0-2); RBC Urine 0-2 /HPF (0-2)
== END 2023-11-11 12:07 | disposition home or self-care (01) ==
LOC: HO.LAB 12:06
PROVIDERS: PCP Internal Medicine; Visit Provider Internal Medicine
DX: E11.9 Type 2 diabetes mellitus without complications (principal); F03.90 Unspecified dementia, unspecified severity, without behavioral disturbance, psychotic disturbance, mood disturbance, and anxiety
CPT/HCPCS: 36415; 80048; 80061; 80076; 81001; 84443; 85027; 85652

== ENCOUNTER 2023-11-28 11:42 | Outpatient (REF) | payer OTHER, SELFPAY ==
--- NOTE | ~2023-11-28 | MR_ITS ---
EXAMINATION: MR BRAIN WITHOUT CONTRAST CLINICAL INFORMATION: Dementia. COMPARISON: None available. TECHNIQUE: MRI of the brain was obtained using routine sequences without contrast. FINDINGS: No focal restricted diffusion is demonstrated to suggest acute or subacute cerebral ischemia. No evidence of acute or chronic hemorrhagic products on heme-sensitive imaging. Scattered periventricular and deep white matter T2 FLAIR hyperintensities consistent with mild underlying microangiopathy. Proportional prominence of the ventricles and sulcal spaces without evidence of obstructive hydrocephalus. No abnormal mass effect. No midline shift. The sella turcica is mildly expanded with partial flattening of the pituitary gland. Normal positioning of the cerebellar tonsils. Normal arterial and venous vascular flow voids are present. Normal, homogeneous marrow signal. 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 Mild mucosal thickening of the paranasal sinuses. No signal abnormalities within the mastoids. MR/MR head/brain wo con IMPRESSION: 1. No acute intracranial abnormalities. 2. Mild underlying microangiopathy and generalized cerebral volume loss. Electronically signed by: Suman Montiel DO 12/26/2023 01:46 PM EDT
== END 2023-11-28 11:43 | disposition home or self-care (01) ==
LOC: HO.MRI 11:42
PROVIDERS: PCP Internal Medicine; Visit Provider Psychiatry & Neurology Neurology
DX: F03.90 Unspecified dementia, unspecified severity, without behavioral disturbance, psychotic disturbance, mood disturbance, and anxiety (principal)
CPT/HCPCS: 70551

== ENCOUNTER 2024-03-08 14:03 | Outpatient (AMB) | payer OTHER, SELFPAY ==
--- NOTE | 2024-03-08 14:24 | A.OFFPC_ITS ---
Vital Signs 03/08/24 14:26 Height 5 ft 1 in Weight 117 lb 4 oz BMI 22.2 BP 120/50 L Blood Pressure Location Lt brachial Position Sitting Pulse 56 Pulse Source Pulse Oximeter Pulse Oximetry (%) 98 Oxygen Delivery Method Room Air Intake Visit Reasons: 3 month f/u Intake Note: Patient is here to follow up on DM, Dementia, CRF, HTN, HLD. Requesting for medication to help decrease urination. Wood Car Builder Required: Yes Wood Car Builder Language: Chemical Educator Name: Daughter Information Interpreted: non-clinical & clinical Food Service Kitchen Supervisor: Present Accompanied by: Daughter Allergies No Known Allergies [No Known Allergies*] Allergy (Verified 03/08/24 14:25) Tobacco use date assessed: 03/08/24 Fall risk assessment: No Falls in past year Last assessed Fall Risk: 03/08/24 Dental Screening Dental Screen Date: 11/08/23 HPI 3 month f/u 2 HPI Details 78-year-old female presents to the [facility] to discuss her chronic medical conditions. Her daughter is speaking on her behalf and an spanish interpreter was used. Patient is compliant with medications and reporting no side effects. Able to function and do all activities of daily living. Patient is traveling to [place] for 4 months. [facility] Medical History Dementia Cough Hypothyroidism High cholesterol Dementia HTN (hypertension) Diabetes Asthma exacerbation Asthma Surgical History H/O: hysterectomy Family History Mother No problems noted. Father No problems noted. Other Mental health disorder Social History Housing: Apartment Alcohol intake: never Patient Tobacco Use Status: Never used Tobacco e-Cigarette/Vaping Use: Never Used Second Hand Smoke Exposure: No service: No Current occupational status: retired and disabled Cognitive needs: Yes (cane) Hearing needs: No Vision needs: Yes (glasses) Questionnaire Thrive Questionnaire Date Thrive assessed: 11/08/23 ISACC-7 AMB Questionnaire ISACC-7 Date ISACC - 7 assessed: 11/08/23 Source: Developed by Drs. Perico LCarlotta Zuniga Kurt Kroenke and colleagues, with an educational bere from [facility]. Physical exam (Primary Care) Vital Signs: Last Vital Signs Pulse 56 03/08/24 14:26 BP 120/50 L 03/08/24 14:26 Pulse Ox 98 03/08/24 14:26 Oxygen Delivery Method Room Air 03/08/24 14:26 BMI result Body Mass Index 22.2 Tobacco/Smoking Status: Tobacco use Status Tobacco use date assessed 03/08/24 03/08/24 14:33 Patient Tobacco Use Status Never used Tobacco 03/08/24 14:33 e-Cigarette/Vaping Use Never Used 03/08/24 14:33 Thrive Assessment: Date of Thrive Assessment Date Thrive assessed 11/08/23 03/08/24 14:33 Const General: cooperative and healthy appearing Nutritional Appearance: well nourished Orientation/consciousness: patient oriented x3 Limitations: no limitations HENMT Head: Yes normal to inspection Eyes General: appearance normal, both eyes and all related structures Neck Neck: Yes normal visual inspection Chest Chest palpation & inspection: normal palpation of entire chest wall Resp Effort & Inspection: normal respiratory effort Neuro General: patient oriented x3 Office Procedures Flu Questionnaire Does the patient have a severe egg allergy?: No Does the patient have severe life threatening allergies?: No Does the patient have a fever or illness today?: No Has the patient ever had Guillain-[place] Syndrome?: No Has the patient ever had any past reaction to a flu shot?: No Results AMB Hemoglobin A1c AMB Hemoglobin A1c 6.0 % Last Edit by CHERYL Yoon on 03/08/24 14:35 Immunizations Fluarix Triv [id number] (PF) 45 mcg (15 mcg x 3)/0.5 mL IM syringe Performing Provider: Terry Wynn MD [facility] Administered by: Dania Watson LPN on 03/08/24 14:41 Dose Route Admin Location Dispensed Lot Number Expiration Date NDC Dermatology Specialist 0.5 mL IM Left Deltoid 0.5 mL [id number] 10/29/24 [id number] [employer] VIS Given Date VIS Provided VIS Publication Date 03/08/24 Single Vaccine 20 Eligibility Eligibility Date Funding Source Not VFC Eligible 03/08/24 Private Results Reviewed Results Reviewed: Laboratory Last Values Hgb A1c (Clinic) 6.0 % (4.0-6.0) 03/08/24 14:23 Coding Level of Care Code Est Pt Level 3 (85688) Complex EM visit Add On G2211 Diagnoses Diabetes E11.9 Assessment & Plan Assessment & Plan (1) Diabetes: Code(s): E11.9 - Type 2 diabetes mellitus without complications Category: Medical Plan: Blood pressure is in range. Continue medications at same dosage. Orders: Orders Influenza [id number] Immunization 03/08/24 Z23 - Encounter for immunization AMB Hemoglobin A1c 03/08/24 E11.9 - Type 2 diabetes mellitus without complications Medications: New amlodipine 5 mg PO DAILY 90 tabs 1RF Refilled atorvastatin 40 mg PO DAILY 3 months 90 tabs 1RF donepezil Patient needs an appointment for refills 10 mg PO DAILY 90 tabs 1RF levothyroxine 88 mcg PO DAILY 90 tabs 1RF losartan-hydrochlorothiazide 100-12.5 mg 1 tab PO DAILY 90 tabs 1RF metformin 500 mg PO DAILY 90 tabs 1RF sertraline 100 mg PO DAILY 90 tabs 1RF J45.909 - Unspecified asthma, uncomplicated
[2024-03-08 14:26] VITALS: BP 120/50; PULSE 56; O2SAT 98; BMI 22.2
== END 2024-03-08 15:33 | disposition home or self-care (01) ==
LOC: HO.HMCH 14:04
PROVIDERS: PCP Internal Medicine; Visit Provider Internal Medicine
DX: E11.9 Type 2 diabetes mellitus without complications (principal)

== ENCOUNTER → 2024-03-08 14:03 | Outpatient (BNVA) | payer OTHER, SELFPAY | PROVIDERS: PCP Internal Medicine; Visit Provider Internal Medicine | DX: Z23 Encounter for immunization (principal); E11.9 Type 2 diabetes mellitus without complications | CPT/HCPCS: 83036; 90471; 90656; 99212 ==

== ENCOUNTER 2024-09-05 11:00 | Outpatient (AMB) | payer OTHER, SELFPAY ==
[2024-09-05 11:14] VITALS: BP 118/66; PULSE 48; BMI 21.2
--- NOTE | 2024-09-05 11:14 | A.OFFVIS_ITS ---
Vital Signs 09/05/24 11:14 Height 5 ft 1 in Weight 112 lb BMI 21.2 BP 118/66 Blood Pressure Location Rt brachial Position Sitting Pulse 48 L Pulse Source Pulse Oximeter Intake Visit Reasons: Follow up Dementia Intake Note: Patient presents for follow up MRI 11/28/23 and labs done 10/11/23 Credit Product Analyst Required: Yes Credit Product Analyst Services: Credit Product Analyst Present Credit Product Analyst Name: Yolanda Emerson Information Interpreted: non-clinical & clinical Allergies No Known Allergies [No Known Allergies*] Allergy (Verified 09/05/24 11:25) Medication List - Last Reconciled 09/05/24 by Radha Le MD albuterol sulfate 90 mcg/actuation 2 puffs inhalation Q6H PRN albuterol sulfate 2.5 mg (3 mL) inhalation QID PRN amlodipine 5 mg PO DAILY atorvastatin 40 mg PO DAILY 3 months donepezil 10 mg PO DAILY famotidine 20 mg PO DAILY fluticasone propionate 50 mcg/actuation (Allergy Relief (fluticasone)) 1 spray intranasal DAILY gabapentin 600 mg PO BID levothyroxine 88 mcg PO DAILY loratadine 10 mg PO DAILY losartan-hydrochlorothiazide 100-12.5 mg 1 tab PO DAILY memantine 14 mg PO DAILY 90 days metformin 500 mg PO DAILY nebulizers (AeroEclipse II Nebulizer) As directed sertraline 100 mg PO DAILY walker (Ultra-Light Rollator misc) As directed HPI Comments Details: 79y/o female comes for f/u of cognitive issues. Her daughter helps with history and reports progression A certified medical receptionist assistant was used during todays appointment she is independent in all her ADLS. She has mild sleep issues. Mood is stable. History from initial visit- As per daughter her memory issues started 5 years ago.The memory has worsened since then she often forgets conversations and repeats herself. her memory issues are mostly short term. she misplaces things around the house. she forgot her recent vacation.she has trouble with phone numbers,but can remember her grand children . she has more anxiety , depression she has rare falls or head injury . she reports numbness and tingling in her hands . she has snoring,trouble falling asleep and staying asleep.she has daytime sleepiness. [facility] Medical History Dementia Cough Hypothyroidism High cholesterol Dementia HTN (hypertension) Diabetes Asthma exacerbation Asthma Surgical History H/O: hysterectomy Family History Mother No problems noted. Father No problems noted. Other Mental health disorder Social History Housing: Apartment Alcohol intake: never Patient Tobacco Use Status: Never used Tobacco e-Cigarette/Vaping Use: Never Used Second Hand Smoke Exposure: No service: No Current occupational status: retired and disabled Cognitive needs: Yes (cane) Hearing needs: No Vision needs: Yes (glasses) Physical Exam Vital Signs: Last Vital Signs Pulse 48 L 09/05/24 11:14 BP 118/66 09/05/24 11:14 BMI result Body Mass Index 21.2 Const General: cooperative, healthy appearing and comfortable Nutritional Appearance: average body habitus Orientation/consciousness: oriented to place HEENT Head: Yes normal to inspection and Yes normocephalic Eyes Pupils: Equal, round and reactive pupils present Neuro General: oriented to place, tone normal, moves all extremities and no focal motor deficits Cranial nerves: Yes CN's II-XII intact bilaterally, Yes Equal, round and reactive pupils present, Yes Bilaterally intact EOM present, Yes Nystagmus not present, Yes Normal facial strength present, Yes Midline tongue present, Yes Ability to bilaterally rotate head present and Yes Ability to bilaterally elevate shoulders present Cognition (Neuro): abnormal cognition Gait exam (Neuro): Antalgic gait present Motor exam (neuro): 5/5 motor strength present throughout and Normal motor muscle tone present throughout Coordination: [id number] test normal Results Reviewed Results Reviewed: MRI brain - 12/2023 No acute intracranial abnormalities. 2. Mild underlying microangiopathy and generalized cerebral volume loss. Assessment & Plan Assessment & Plan (1) Dementia: Comment: ALzheimers vs Mixed Code(s): F03.90 - Unspecified dementia, unspecified severity, without behavioral disturbance, psychotic disturbance, mood disturbance, and anxiety Category: Medical Qualifiers: Dementia type: unspecified type Dementia severity: mild Dementia behavioral or psychological symptom: without behavioral, psychotic, or mood disturbance or anxiety Qualified Code(s): F03.A0 - Unspecified dementia, mild, without behavioral disturbance, psychotic disturbance, mood disturbance, and anxiety Plan MRI Brain- reviewed , non focal Vit B 12 RPR- normal Continue donepezil 10mg qd I will increase her namenda XR to 21 mg qd for 30 days and then 28 mg qd Medications: New memantine 28 mg PO DAILY 90 ea 6RF Changed From memantine 14 mg PO DAILY 90 days 90 ea 0RF To memantine 21 mg PO DAILY 30 days 30 ea 0RF Coding Level of Care Code Est Pt Level 4 (65727) Diagnoses Mild dementia without behavioral disturbance, psychotic disturbance, mood disturbance, or anxiety, unspecified dementia type F03.A0 Dementia type: unspecified type Dementia severity: mild Dementia behavioral or psychological symptom: without behavioral, psychotic, or mood disturbance or anxiety
--- OUTSIDE RECORDS SUMMARY | 2024-09-05 12:25 | XMS_ITS | Continuity of Care Document ---
Author Organization [facility] Address [address] [address] Phone Care Team Providers Care Real Estate Administrative Assistant Name Role Phone Damaris Dickson MD Unavailable Unavailable Medications Medication Instructions Dosage Effective Dates (start - stop) Status Comments famotidine 20 mg tablet take 1 tablet by oral route every day 20 MG Oct- - Active donepezil 10 mg tablet take 1 tablet by oral route every day in the evening 10 MG Jan- - Active fluticasone propionate 50 mcg/actuation nasal spray,suspension inhale 1 spray by intranasal route every day in each nostril 50 MCG Jan- - Active lisinopril 10 mg tablet take 1 tablet by oral route every day 10 MG Jan- - Active atorvastatin 40 mg tablet take 1 tablet by oral route every day 40 MG Jan- - Active sertraline 100 mg tablet take 1 tablet by oral route every day 100 MG Jan- - Active metformin 500 mg tablet take 1 tablet by oral route every day with morning and evening meals 500 MG Jan- - Active gabapentin 300 mg capsule take 1 capsule by oral route 2 times every day 300 MG Jan- - Active levothyroxine 88 mcg tablet take 1 tablet by oral route every day 88 MCG Jan- - Active ProAir HFA 90 mcg/actuation aerosol inhaler inhale 1 puff by inhalation route daily as needed Oct- - Active amlodipine 5 mg tablet take 1 tablet by oral route every day 5 MG Oct- - Active baclofen 20 mg tablet take 1 tablet by o ral route every day 20 MG Jan- - Active ibuprofen 200 mg capsule take 1 capsule by oral route every 6 hours as needed 200 MG Oct- - Active Advance Directives Directive Yes / No Effective Date File Name No Information Encounters Encounter Description Practice Location Reason(s) For Visit Diagnoses Date Provider [facility], [address] [address], [place], [place], [id number], tel:[phone] [facility] No Information Randolph Ocampo. [address] [place] [address], [id number], . tel:[phone] [facility], [address] [address], [place], [place], [id number], [place] tel:[phone] Alexis No Information Tammie Martin. [address] [place], [address]. tel:[phone] [facility], [address] [address], [place], [place], [id number], tel:[phone] Alexis INTAKE (chief complaint) Encounter for general adult medical examination without abnormal findingsEncounter for screening for respiratory tuberculosis Tammie Martin. [address], [place], [address]. tel:[phone] Family History Family Member Type Diagnosis Age At Onset No Information Payers Payer name Insurance type Covered democrat ID Authoriza tion(s) No Information Social History Type Description Quantity Date Captured Comments Sex Female Smoking Status No Information Chief Complaint And Reason For Visit No Information History Of Present Illness Encounter Date Complaint History Of Prese nt Illness INTAKE Pt seen face to face for intake with daughter and slat twister.Pt has lived with daughter over the last year after of in [place] Has 4 other daughters that are not involved in her care. Has chronic pain in R knee, presumably due to OA, but able to negotiate the 15 steps needed to get to the first floor unit. Has a cane but does not use it. Daughter reports gradual decline in cognitive function over years. Daughter does not feel she is elopement risk but she is not safe to be left alone at any time per daughter. Daughter is with her all the time . She has considerable STM loss, no hallucinations/delusions. Has history of depression, recently crying more, sleep disturbed, but eating well. No SI. Daughter says she is sensitive emotionally. Is currently smoking less than 1PPD. Has a hx of asthma but denies any SOB. Has history of chronic low BP. Has DM but does not check BS's. Multiple losses over the last year , , son in work accident, gradson of asthma. Has occasional WHALEN's, has chronic blurry vision, no CP or abdominal pain, no N/V/D. Reports LE edema. Appetite good, no swallowing issues. No issues.Wears glasses. No hearing issues. Chronic LBP.Daughter sets up her meds. In the process of applying for Medicaid.Pharmacy- [facility] . Currently getting meds from [facility].- gets 3 month supply.Hospitalizations 06/2019 fo CHF and uncontrolled DM, but I don't have the medical records to review.Falls- feel >8 months ago, fell off forch, no injury. Another fall 10 years ago- broke arm.Pt would be a good candidate and would benefit from the PACE program. Instructions Date Instruction Additional Infor charles No Information Assessments Type Assessment Date No Information
== END 2024-09-05 11:53 | disposition home or self-care (01) ==
LOC: HO.HSMS 11:01
PROVIDERS: PCP Internal Medicine; Visit Provider Psychiatry & Neurology Neurology
DX: F03.A0 Unspecified dementia, mild, without behavioral disturbance, psychotic disturbance, mood disturbance, and anxiety (principal)
CPT/HCPCS: 99214

== ENCOUNTER → 2024-09-05 11:00 | Outpatient (BNVA) | payer OTHER, SELFPAY | PROVIDERS: PCP Internal Medicine; Visit Provider Psychiatry & Neurology Neurology | DX: F03.A0 Unspecified dementia, mild, without behavioral disturbance, psychotic disturbance, mood disturbance, and anxiety (principal) | CPT/HCPCS: 99212 ==